=== PATIENT | female | born 1995 | race Caucasian/White ===

== ENCOUNTER 2023-12-19 11:01 | Emergency (ER) | payer SELFPAY ==
[~2023-12-19] VITALS: Ht 175.3 cm; Wt 95.0 kg
--- NOTE | 2023-12-19 11:34 | ED.PDOC ---
History of Present Illness(SKN HPI Comments A 28 YEAR OLD FEMALE PRESENTS TO THE ED WITH COMPLAINT OF CAT BITE. PATIENT REPORTS THAT SHE HAD BEEN BITTEN ON THE LEFT HAND BY A STRAY CAT YESTERDAY. PATIENT RELAYS THAT SHE VISITED [facility] WHERE SHE WAS PROVIDED AN AUGMENTIN RX, IBUPROFEN, AND GIVEN A SHOT OF ANTIBIOTIC. PATIENT STATES THAT DESPITE THE TREATMENT, THE PAIN, SWELLING, AND REDNESS OF HER LEFT HAND IS WORSENING OVER TIME. PATIENT NOTES SHE IS UTD WITH HER TETANUS VACCINE, BUT IS NOT SURE OF THE VACCINATION STATUS OF THE CAT. PATIENT DENIES FEVER, CHILLS, SHORTNESS OF BREATH, CHEST PAIN, NUMBNESS, WEAKNESS, OR OTHER COMPLAINTS. NO OTHER SYMPTOMS OR MODIFYING FACTORS AT THIS TIME. Chief Complaint: Animal Bite Time Seen by MD: 11:28 History of Present Illness: Nurses Notes, Medications, Allergies Allergies: Coded Allergies: NO KNOWN ALLERGIES (Unverified , 12/19/23) Information Source: Patient Mode of Arrival: Ambulatory Severity: Moderate Timing: Days Duration: Since onset Prehospital treatment: None Location: Hand Mechanism: Cat Occurence: Outdoors Object: None Condition of Object: None Retained Foreign Body: No Wound Type: Puncture Immunization Status of Animal: Unknown Tetanus: UTD History of: None Associated Signs and Symptoms: Redness, Swelling, Pain Past Medical History PAST MEDICAL HISTORY: Denies Surgical History: Denies all surgeries REGION MANAGER History: No Pertinent REGION MANAGER History Family History Family History: Reviewed,noncontributory to illness Social History Smoker: Non-Smoker Alcohol: Denies ETOH Use Drugs: Denies Drug Use Lives In: Home Constitutional: denies: chills, diaphoresis, fatigue, fever, malaise, sweats, weakness, others EENTM: denies: blurred vision, double vision, ear bleeding, ear discharge, ear drainage, ear pain, ear ringing, eye pain, eye redness, hearing loss, mouth pain, mouth swelling, nasal discharge, nose bleeding, nose congestion, nose pain, photophobia, tearing, throat pain, throat swelling, voice changes, others Respiratory: denies: cough, hemoptysis, orthopnea, SOB at rest, shortness of breath, SOB with excertion, stridor, wheezing, others Cardiovascular: denies: chest pain, dizzy spells, diaphoresis, Dyspnea on exertion, edema, irregular heart beat, left arm pain, lightheadedness, palpitations, PND, syncope, others Gastrointestinal: denies: abdomen distended, abdominal pain, blood streaked bowels, constipated, diarrhea, dysphagia, difficulty swallowing, hematemesis, melena, nausea, poor appetite, poor fluid intake, rectal bleeding, rectal pain, vomiting, others Genitourinary: denies: abnormal vagina bleeding, burning, dyspareunia, dysuria, flank pain, frequency, hematuria, incontinence, pain, , vagina discharge, urgency, others Neurological: denies: dizziness, fainting, headache, left sided numbness, left sided weakness, numbness, paresthesia, pre-existing deficit, right sided numbness, right sided weakness, seizure, speech problems, tingling, tremors, weakness, others Musculoskeletal: denies: back pain, gout, joint pain, joint swelling, muscle pain, muscle stiffness, neck pain, others Integumetry: reports: lesions, wounds (LEFT HAND PUNCTURE WOUND WITH REDNESS AND SWELLING); denies: bruises, change in color, change in hair/nails, dryness, laceration, lumps, rash, others Allergic/Immunocompromised: denies: Difficulty Healing, Frequent Infections, Hives, Itching, others Hematologic/Lymphatic: denies: anemia, blood clots, easy bleeding, easy bruising, swollen glands, others Endocrine: denies: excessive hunger, excessive sweating, excessive thirst, excessive urination, flushing, intolerance to cold, intolerance to heat, unexplained weight gain, unexplained weight loss, others Psychiatric: denies: anxiety, bipolar disorder, depression, hopeless, panic disorder, schizophrenia, sleepless, suicidal, others All Other Systems: Reviewed and Negative Physical Exam General Appearance: No Apparent Distress, Normal HEENT: Normal ENT Inspection, PERRL/EOMI, Pharynx Normal Neck: Full Range of Motion, Non-Tender, Normal, Normal Inspection Respiratory: Chest Non-Tender, Lungs Clear, No Accessory Muscle Use, No Respiratory Distress, Normal Breath Sounds Cardiovascular: No Edema, No JVD, No Murmur, No Gallop, Normal Peripheral Pulses, Regular Rate/Rhythm Breast Exam: Deferred Gastrointestinal: No Organomegaly, Non Tender, No Pulsatile Mass, Normal Bowel Sounds, Soft Genitalia: Deferred Pelvic: Deferred Rectal: Deferred Extremities: No calf tenderness, Normal capillary refill, Normal range of motion, No pedal edema, Swelling (WITH REDNESS AND MILD SWELLING ON LEFT DORSAL HAND, NO BONY TENDERNESS AND DEFORMITY. ), Tender (AND SWELLING WITH TWO SMALL PUNCTURE WOUND ON LEFT INDEX FINGER. ) Musculoskeletal : Apperance: Normal Neurologic: Alert, glove printer II-XII nml as Tested, No Motor Deficits, Normal Affect, Normal Mood, No Sensory Deficits Cerebellar Function: Normal Reflexes: Normal Skin: Dry, Warm, Wounds (TWO SMALL PUNCTURE WOUND WITH LOCALIZED REDNESS AND SWELLING ON LEFT DORSAL INDEX FINGER, NEUROVASCULAR INTACT. ) Peripheral Pulses: 2+ carotid (R), 2+ carotid (L), 2+ Radial (R), 2+ Radial (L) Lymphatic: No Adenopathy Was a procedure done? Was a procedure done?: No Differential Diagnosis (INTG) Differential Diagnosis: Puncture Wound, Other (CAT BITE ) Differential Diagnosis: Abscess, Cellulitis X-Ray, Labs, Meds, VS Vital Signs Date Time Temp Pulse Resp B/P (MAP) Pulse Ox O2 Delivery O2 Flow Rate FiO2 12/19/23 11:35 84 17 97 Room Air 12/19/23 11:35 98.4 84 17 114/61 (78) 97 98.4 12/19/23 11:08 98.9 72 16 136/73 (94) 97 12/19/23 11:08 98.9 72 16 136/73 (94) 97 98.9 Current Medications Medications (Trade) Dose Ordered Sig/Bryan Route Start Time Stop Time Status Last Admin Ceftriaxone Sodium (Rocephin) 1,000 mg ONCE ONCE IM 12/19/23 11:45 12/19/23 11:46 12/19/23 11:41 X-Ray, Labs, Meds, VS Comment MILD PUS DRAINED WITH A NEEDLE, PUNCTURE WOUND CLEANED WITH NORMAL SALINE AND WRAPPED. ROCEPHIN 1GM IM Time of 1ST Reevaluation: 12:20 Reevaluation 1ST: Improved Patient Education/Counseling: Diagnosis, Treatment, Need For Follow Up Family Education/Counseling: Diagnosis, Treatment, No Family Present Medical Screening: No EMC Exist At This Time Departure 1 Departure Time of Disposition: 12:30 Impression: Primary Impression: Cat bite of left hand Qualified Codes: S61.452A - Open bite of left hand, initial encounter; W55.01XA - Bitten by cat, initial encounter Additional Impression: Puncture wound of left hand Qualified Codes: S61.432A - Puncture wound without foreign body of left hand, initial encounter Disposition: HOME / SELF CARE / HOMELESS Condition: Stable Additional Instructions: FOLLOW UP WITH WORK[facility] IN 2 DAYS. RETURN TO THE ED IF SYMPTOMS PERSIST OR WORSEN. Discharged With: Self Critical Care Note Critical Care Time?: No Stability Stability form required: No Heart Score Heart Score: Heart Score Response (Comments) Value History N/A 0 EKG N/A 0 Age N/A 0 Risk Factors N/A 0 Troponin N/A 0 Total 0 I personally scribed for DEB FUCHS ([email or web address]) on 12/19/23 at 11:34. Electronically submitted by Danny Tucker ([email or web address]). DEB FUCHS Dec 19, 2023 11:34
[2023-12-19 11:35] VITALS: BP 114/61; PULSE 84; RESP 17; TEMP 98.4; O2SAT 97
[2023-12-19] MEDS: cefTRIAXone SOD 1,000 MG VL IM ONE (11:41)
[2023-12-19] MEDS: LIDOCAINE 1% HCL (LOCAL ANESTH.) INJ 20ML MDV ONE (12:26)
== END 2023-12-19 12:27 | disposition home or self-care (01) ==
LOC: ER 11:01
DX: S61.432A Puncture wound without foreign body of left hand, initial encounter (principal); S61.231A Puncture wound without foreign body of left index finger without damage to nail, initial encounter; W55.01XA Bitten by cat, initial encounter; Y93.89 Activity, other specified; Y92.89 Other specified places as the place of occurrence of the external cause; Y99.8 Other external cause status
CPT/HCPCS: 96372; 99283; J0696; J2003

== ENCOUNTER 2023-12-21 17:00 | Emergency (ER) | payer SELFPAY ==
[~2023-12-21] VITALS: Ht 175.3 cm; Wt 97.8 kg
[2023-12-21 18:55] VITALS: BP 117/52; PULSE 80; RESP 16; TEMP 98.3; O2SAT 97
[2023-12-21] MEDS ORDERED: BACDST PO (19:07)
--- NOTE | 2023-12-21 19:10 | ED.PDOC ---
History of Present Illness(SKN HPI Comments THIS IS A 28-YEAR-OLD FEMALE PRESENTS TO THE ED FOLLOW UP ON CAT BITE TO LEFT HAND. PATIENT WAS SEEN HERE 1-2 DAYS AGO AND HAD IT DRAINED CONTINUES TO BE ON AUGMENTIN SHE DOES NOTE SOME IMPROVEMENT. DENIES FEVERS, CHILLS, PURULENT DRAINAGE, NAUSEA OR VOMITING. Chief Complaint: Wound Check Time Seen by MD: 18:27 History of Present Illness: Nurses Notes, Medications, Allergies Allergies: Coded Allergies: NO KNOWN ALLERGIES (Unverified , 12/19/23) Mode of Arrival: Ambulatory Past Medical History PAST MEDICAL HISTORY: Denies Surgical History: Denies all surgeries DIVISIONAL MERCHANDISING MANAGER History: No Pertinent DIVISIONAL MERCHANDISING MANAGER History Family History Family History: Reviewed,noncontributory to illness Social History Smoker: Non-Smoker Alcohol: Denies ETOH Use Drugs: Denies Drug Use Lives In: Home Constitutional: denies: chills, diaphoresis, fatigue, fever, malaise, sweats, weakness, others EENTM: denies: blurred vision, double vision, ear bleeding, ear discharge, ear drainage, ear pain, ear ringing, eye pain, eye redness, hearing loss, mouth pain, mouth swelling, nasal discharge, nose bleeding, nose congestion, nose pain, photophobia, tearing, throat pain, throat swelling, voice changes, others Respiratory: denies: cough, hemoptysis, orthopnea, SOB at rest, shortness of breath, SOB with excertion, stridor, wheezing, others Cardiovascular: denies: chest pain, dizzy spells, diaphoresis, Dyspnea on exertion, edema, irregular heart beat, left arm pain, lightheadedness, palpitations, PND, syncope, others Gastrointestinal: denies: abdomen distended, abdominal pain, blood streaked bowels, constipated, diarrhea, dysphagia, difficulty swallowing, hematemesis, melena, nausea, poor appetite, poor fluid intake, rectal bleeding, rectal pain, vomiting, others Genitourinary: denies: abnormal vagina bleeding, burning, dyspareunia, dysuria, flank pain, frequency, hematuria, incontinence, pain, , vagina disc harge, urgency, others Neurological: denies: dizziness, fainting, headache, left sided numbness, left sided weakness, numbness, paresthesia, pre-existing deficit, right sided numbness, right sided weakness, seizure, speech problems, tingling, tremors, weakness, others Musculoskeletal: denies: back pain, gout, joint pain, joint swelling, muscle pain, muscle stiffness, neck pain, others Integumetry: reports: wounds (CAT BITE LEFT HAND DORSUM ASPECT OF THUMB); denies: bruises, change in color, change in hair/nails, dryness, laceration, lesions, lumps, rash, others Allergic/Immunocompromised: denies: Difficulty Healing, Frequent Infections, Hives, Itching, others Hematologic/Lymphatic: denies: anemia, blood clots, easy bleeding, easy bruising, swollen glands, others Endocrine: denies: excessive hunger, excessive sweating, excessive thirst, excessive urination, flushing, intolerance to cold, intolerance to heat, unexplained weight gain, unexplained weight loss, others Psychiatric: denies: anxiety, bipolar disorder, depression, hopeless, panic disorder, schizophrenia, sleepless, suicidal, others Physical Exam General Appearance: No Apparent Distress, Normal HEENT: Pharynx Normal Neck: Full Range of Motion, Non-Tender Respiratory: Lungs Clear, No Respiratory Distress, Normal Breath Sounds Cardiovascular: No Murmur, Normal Peripheral Pulses, Regular Rate/Rhythm Breast Exam: Deferred Gastrointestinal: Non Tender, Soft Genitalia: Deferred Pelvic: Deferred Rectal: Deferred Extremities: No calf tenderness, Normal inspection, Normal range of motion Musculoskeletal : Apperance: Normal Neurologic: Alert, sales and marketing engineer II-XII nml as Tested, No Motor Deficits, Normal Affect, Normal Mood, No Sensory Deficits Cerebellar Function: Normal Reflexes: Normal Skin: Dry, Normal Color, Warm Lymphatic: No Adenopathy Was a procedure done? Was a procedure done?: No Differential Diagnosis (INTG) Differential Diagnosis: Cellulitis, Puncture Wound X-Ray, Labs, Meds, VS Vital Signs Date Time Temp Pulse Resp B/P (MAP) Pulse Ox O2 Delivery O2 Flow Rate FiO2 12/21/23 18:55 80 16 97 Room Air 12/21/23 18:55 98.3 80 16 117/52 (73) 97 98.3 12/21/23 18:09 98.3 80 16 117/52 (73) 97 X-Ray, Labs, Meds, VS Comment IMPROVEMENT CONTINUES WITH SOME ERYTHEMA AND EDEMA. WE WILL STANDARD FOR CAT BITES IS BACTRIM VERSUS AUGMENTIN, WE WILL SWITCH PATIENT TO BACTRIM TWICE DAILY X7 DAYS. ADVISED TO STOP THE AUGMENTIN. ADVISED TO FOLLOW UP WITH HER PCP IN 2 DAYS FOR WOUND RE-EVALUATION OR COME BACK TO THE ER. ADVISED TO RETURN TO THE ER FOR INCREASING PAIN, NUMBNESS, WEAKNESS, INCREASING ERYTHEMA, SWELLING, OR ANY CONCERNING SYMPTOMS PATIENT AGREES WITH DISCHARGE PLAN OF CARE. Time of 1ST Reevaluation: 19:05 Reevaluation 1ST: Improved Patient Education/Counseling: Diagnosis, Treatment, Prognosis, Need For Follow Up Family Education/Counseling: No Family Present Departure 1 Departure Time of Disposition: 18:59 Impression: Primary Impression: Cat bite of left hand Qualified Codes: S61.452A - Open bite of left hand, initial encounter; W55.01XA - Bitten by cat, initial encounter Disposition: HOME / SELF CARE / HOMELESS Condition: Stable e-Prescriptions Sulfamethoxazole W/Trimethopri (Bactrim Ds Tablet) 1 Tab Tb 1 TAB PO BID for 7 Days, #14 TAB Prov: ROBERTO MARTINEZ 12/21/23 Discharged With: Self Critical Care Note Critical Care Time?: No Stability Stability form required: ROBERTO Nelson Dec 21, 2023 19:10
== END 2023-12-21 19:13 | disposition home or self-care (01) ==
LOC: ER 17:00
DX: S61.452D Open bite of left hand, subsequent encounter (principal); W55.01XD Bitten by cat, subsequent encounter